=== PATIENT | male | born 1985 | race Caucasian/White ===

== ENCOUNTER 2019-10-30 08:05 | Outpatient (CLI) | payer OTHER ==
--- NOTE | 2019-10-30 08:56 | CT ---
CT ABDOMEN AND PELVIS WITH IV CONTRAST 10/30/2019 CLINICAL INFORMATION: Dull pain and swelling to left inguinal region. Inguinal hernia. COMPARISON: None. Technique: Multiple contiguous axial CT images are obtained through the abdomen and pelvis with IV contrast. Cor onal reformatted images are provided. FINDINGS: Lower Chest: No consolidation or pleural fluid seen. Vessels: Normal aorta is normal in caliber without evidence of an aortic dissection. Abdomen: Portal vein:Patent Gallbladder: Within normal limits for CT imaging. Liver: Mildly enlarged in craniocaudal dimensions measuring 18 cm. Liver otherwise has a normal appea dunia. Increase in craniocaudal dimensions may be related to body habitus. Spleen: within normal limits. Pancreas: within normal limits. Adrenals: within normal limits. Kidneys: Small 1.4 cm low-attenuation density seen in the superior pole right kidney most compatible with a cyst. Kidneys otherwise have a normal CT appearance. Bowel: Normal caliber. Appendix: Not definitely visualized, but no secondary signs to suggest appendicitis are noted. Peritoneum: No ascites or free air; no fluid collection. Mesentery and Retroperitoneum: No enlarged mesenteric or retroperitoneal lymph nodes. Abdominal Wall: A small fat-containing left inguinal hernia is present measuring approximately 3.8 cm in length. Pelvis: Reproductive Organs: No pelvic masses. Pelvis within normal limits. Bladder: within normal limits. Bones: within normal limits. IMPRESSION: 1. Small fat-containing left inguinal hernia. 2. Small right renal cyst. 3. The liver is enlarged in craniocaudal dimensions, but this may be related to body habitus.
== END 2019-10-30 08:06 | disposition home or self-care (01) ==
LOC: CT 08:05
PROVIDERS: ATTEND Family Medicine
DX: K40.90 Unilateral inguinal hernia, without obstruction or gangrene, not specified as recurrent (principal); N28.1 Cyst of kidney, acquired; R16.0 Hepatomegaly, not elsewhere classified
CPT/HCPCS: 74177; 74178

== ENCOUNTER 2020-01-21 06:27 | Outpatient (CLI) | payer OTHER ==
[2020-01-21 13:06] LABS: Anion Gap 13 mmol/L (10-20); BUN (Urea Nitrogen) 9 mg/dL (8.9-20.6); Calc. Creatinine Clearance 0 mL/min (70-130); Calcium 9.6 mg/dL (7.8-10.44); Carbon Dioxide 26 mmol/L (22-29); Chloride 103 mmol/L (98-107); Estimated GFR-MDRD 85; Glucose 95 mg/dL (70-105); Potassium 4.2 mmol/L (3.5-5.1); Sodium 138 mmol/L (136-145)
[2020-01-21 18:46] LABS: SARS-CoV-2 MS2 Positive; SARS-CoV-2 N Gene Negative; SARS-CoV-2 S Gene Negative; SARS-CoV-2 orf1ab Negative
== END 2020-01-21 06:28 | disposition home or self-care (01) ==
LOC: LABBT 06:27
PROVIDERS: ATTEND Surgery
DX: Z01.812 Encounter for preprocedural laboratory examination (principal); Z11.59 Encounter for screening for other viral diseases; K40.90 Unilateral inguinal hernia, without obstruction or gangrene, not specified as recurrent
CPT/HCPCS: 80048; 87635; U0003

== ENCOUNTER 2020-01-23 06:54 | Day surgery (SDC) | payer OTHER ==
[2020-01-21 11:28] VITALS: BMI 21.6
[2020-01-23] MEDS ORDERED: Lidocaine 1% w/Epinephrine 1:100K 20 ML VIAL ONE (08:28)
[2020-01-23] MEDS ORDERED: Bupivacaine 0.25% HCL 30 ML VIAL ONE (08:28)
[2020-01-23] MEDS ORDERED: Midazolam HCl 2 mg/2 ml Vial ONE (08:29)
[2020-01-23] MEDS ORDERED: Fentanyl 100 MCG/2 ML VIAL ONE (08:29)
[2020-01-23] MEDS ORDERED: PROPOFOL 200 MG/20 ML VIAL ONE (13:20)
[2020-01-23] MEDS ORDERED: Ondansetron PF 4 MG/2 ML Vial ONE (13:20)
[2020-01-23] MEDS ORDERED: Dexamethasone 20 MG/5 ML VIAL ONE (13:20)
[2020-01-23] MEDS ORDERED: Lidocaine 1% PF 5 ML VIAL ONE (13:20)
[2020-01-23] MEDS ORDERED: Ketorolac Tromethamine 30 MG/ML VIAL ONE (13:20)
[2020-01-23] MEDS ORDERED: Rocuronium Bromide 10 MG/ML (10ML VIAL) ONE (13:20)
--- NOTE | 2020-01-23 15:50 | OP ---
DATE OF PROCEDURE: 01/23/2020 PREOPERATIVE DIAGNOSIS: Left inguinal hernia. POSTOPERATIVE DIAGNOSIS: Left inguinal hernia. PROCEDURE PERFORMED: Da Pierce laparoscopic robot left inguinal hernia repair with mesh, Bard 3DMax large. ANESTHESIA: General. ESTIMATED BLOOD LOSS: Minimal. COMPLICATION: None. SPECIMEN: None. FINDING: Left inguinal hernia. DESCRIPTION OF PROCEDURE: The patient was taken to the operating room and laid supine on the operating room table. After general anesthetic was obtained, the abdomen was shaved, prepped, and draped in a sterile fashion. A Souza catheter had been placed. An incision was made above the umbilicus. Cautery was used to dissected down to and score the fascia. Abdominal cavity was entered bluntly using a Mckenna clamp. Holding stitch of PDS was placed on each side of fascia. Kaylen trocar was placed. High-flow pneumoperitoneum was obtained. Left and right abdominal 8-mm robot ports were placed and all docked to the robot. Peritoneum was taken down in the left lower abdomen. There was no right inguinal hernia. Preperitoneal space was dissected to the pubic tubercle medially, to the anterior superior iliac crest laterally. Shelving edge of inguinal ligament fully exposed. Indirect hernia dissected back high up on to the perineum. There was no direct hernia. The mesh was brought and the M-labeled medial aspect was placed over the pubic tubercle medially. The mesh was laid out to cover the femoral indirect and direct areas. The mesh was sewn via 2-0 Vicryl to the pubic tubercle medially, to the posterior fascia laterally. The peritoneum was closed using running Stratafix suture. All needles were removed from the abdomen and accounted for. All ports are infiltrated with local and removed under direct visualization without bleeding. Pneumoperitoneum was let down. PDS was used to close the fascial defect below the umbilicus. Incisions were irrigated and closed using 4-0 Monocryl and Dermabond. The patient was sent to Recovery in stable condition. All instrument counts, needle counts, and lap counts are correct. Job ID: [id number]
== END 2020-01-23 13:35 | disposition home or self-care (01) ==
LOC: SDC 06:54
PROVIDERS: ATTEND Surgery
PROC: 0YU64JZ Supplement Left Inguinal Region with Synthetic Substitute, Percutaneous Endoscopic Approach (ICD-10-PCS; principal; 2020-01-23)
DX: K40.90 Unilateral inguinal hernia, without obstruction or gangrene, not specified as recurrent (principal); F17.200 Nicotine dependence, unspecified, uncomplicated
CPT/HCPCS: C1781; J0690; J1100; J1885; J2001; J2250; J2405; J2704; J3010; S0020